=== PATIENT | female | born 1985 | race Caucasian/White ===

== ENCOUNTER 2022-06-19 14:30 | Inpatient (IN) | payer OTHER ==
[2022-06-19 16:49] VITALS: BMI 20.8
[2022-06-19] MEDS ORDERED: NALOXONE HCL 0.4 MG/ML VIAL IM PRN (19:03)
[2022-06-19] MEDS ORDERED: MAG HYDROX/AL HYDROX/SIMETH 30 ML UNIT-DOSE CUP PO PRN (19:03)
[2022-06-19] MEDS ORDERED: BENZOCAINE/MENTHOL (CHLORASEPTIC ) LOZENGE MM PRN (19:03)
[2022-06-19] MEDS ORDERED: NALOXONE HCL (KLOXXADO) 8 MG SPRAY NS PRN (19:03)
[2022-06-19] MEDS ORDERED: AMMONIUM LACTATE 12% LOTION 225 GM BOTTLE TP PRN (19:03)
[2022-06-19] MEDS ORDERED: guaiFENesin 600 MG TABLET.ER (FP) PO PRN (19:03)
[2022-06-19] MEDS ORDERED: POLYETHYLENE GLYCOL (HEALTHYLAX) 3350 17 GM PACKET PO PRN (19:03)
[2022-06-19] MEDS ORDERED: MAGNESIUM HYDROX 2400MG/30ML ORAL SUSPENSION 30 ML CUP PO PRN (19:03)
[2022-06-19] MEDS ORDERED: LOPERAMIDE HCL 2 MG CAPSULE PO PRN (19:03)
[2022-06-19] MEDS ORDERED: BENZONATATE 200 MG CAPSULE PO PRN (19:03)
[2022-06-19] MEDS ORDERED: ALBUTEROL SO4 0.083% IH SOL 2.5 MG/3 ML VIAL.NEB. NEB PRN (19:05)
[2022-06-19] MEDS ORDERED: ACETAMINOPHEN 325 MG TABLET (FP) ONE (19:20)
[2022-06-19] MEDS: ACETAMINOPHEN 325 MG TABLET (FP) PO PRN (19:23)
[2022-06-19] MEDS ORDERED: TUBERCULIN PPD 5 TU/0.1ML VIAL ID ONE (20:48)
[2022-06-19] MEDS: THIAMINE HCL 100 MG TABLET (FP) PO SCH (21:54)
[2022-06-19] MEDS: MELATONIN 5 MG TABLETS PO SCH (21:55)
[2022-06-20] MEDS: IBUPROFEN 400 MG TABLET (FP) PO PRN (03:14)
[2022-06-20] MEDS: hydrOXYzine PAMOATE 25 MG CAPSULE (FP) PO PRN ×2 (03:14→10:36)
[2022-06-20] MEDS: PRENATAL VITAMINS W/ FOLIC ACID TABLET (FP) PO SCH (10:35)
[2022-06-20] MEDS: IBUPROFEN 600 MG TABLET (FP) PO PRN (10:37)
[2022-06-20] MEDS: NICOTINE 10 MG CARTRIDGE (INHALER) IH PRN (10:38)
[2022-06-20 11:30] LABS: HEMATOCRIT 34.7 % (32.4-45.2); HEMOGLOBIN 11.7 GM/dL (10.7-15.3); MCH 33.1 pg (25.7-33.7); MCHC 33.8 g/dl (32.0-36.0); MEAN CELL VOLUME 97.9 fl (80-96); MEAN PLT VOLUME 8.8 fl (7.5-11.1); PLATELET COUNT 360 10^3/uL (134-434); RBC 3.54 M/mm3 (3.60-5.2); RDW 14.3 % (11.6-15.6); WHITE BLOOD COUNT 8.5 K/mm3 (4.0-10.0)
[2022-06-20 11:54] LABS: POTASSIUM 4.3 mmol/L (3.5-5.1)
[2022-06-20 12:18] LABS: CALCIUM 9.1 mg/dL (8.5-10.1)
[2022-06-20 12:19] LABS: ALBUMIN 3.8 g/dl (3.4-5.0); BLOOD UREA NITROGEN 11.5 mg/dL (7-18)
[2022-06-20 12:22] LABS: CREATININE 0.8 mg/dL (0.55-1.3)
[2022-06-20 12:23] LABS: BILIRUBIN,TOTAL 0.8 mg/dL (0.2-1)
[2022-06-20 12:24] LABS: TOT PROT 7.4 g/dl (6.4-8.2)
[2022-06-20 12:32] LABS: SYPHILIS W/ RPR CONF NON-REACTIVE (NONREACTIVE)
[2022-06-20] MEDS ORDERED: METHOCARBAMOL 500 MG TABLET PO SCH (14:00)
[2022-06-20] MEDS: MELATONIN 5 MG TABLETS PO SCH (21:28)
[2022-06-20] MEDS: THIAMINE HCL 100 MG TABLET (FP) PO SCH (21:28)
[2022-06-20] MEDS: traZODone HCL 50 MG TABLET (FP) PO SCH (21:29)
[2022-06-21] MEDS: PRENATAL VITAMINS W/ FOLIC ACID TABLET (FP) PO SCH (09:48)
[2022-06-21] MEDS: NICOTINE 10 MG CARTRIDGE (INHALER) IH PRN (15:45)
[2022-06-21 20:00] LABS: URINE APPEARANCE CLEAR; URINE BILIRUBIN NEGATIVE (NEGATIVE); URINE COLOR YELLOW; URINE GLUCOSE (UA) NEGATIVE (NEGATIVE); URINE KETONE TRACE (NEGATIVE); URINE LEUK ESTERASE NEGATIVE (NEGATIVE); URINE NITRITE NEGATIVE (NEGATIVE); URINE PROTEIN NEGATIVE (NEGATIVE)
[2022-06-21] MEDS: traZODone HCL 50 MG TABLET (FP) PO SCH (21:35)
[2022-06-21] MEDS: MELATONIN 5 MG TABLETS PO SCH (21:35)
[2022-06-21] MEDS: THIAMINE HCL 100 MG TABLET (FP) PO SCH (21:35)
[2022-06-22] MEDS: PRENATAL VITAMINS W/ FOLIC ACID TABLET (FP) PO SCH (09:33)
[2022-06-22] MEDS: MELATONIN 5 MG TABLETS PO SCH (21:25)
[2022-06-22] MEDS: THIAMINE HCL 100 MG TABLET (FP) PO SCH (21:25)
[2022-06-22] MEDS: NICOTINE 10 MG CARTRIDGE (INHALER) IH PRN (21:25)
[2022-06-22] MEDS: traZODone HCL 50 MG TABLET (FP) PO SCH (21:25)
[2022-06-22] MEDS: METHOCARBAMOL 500 MG TABLET PO PRN (21:26)
[2022-06-23] MEDS: METHOCARBAMOL 500 MG TABLET PO PRN ×2 (10:00→21:34)
[2022-06-23] MEDS: FLUTICASONE/SALMETEROL 100 MCG/50 MCG DISKUS IH SCH ×2 (10:31→21:32)
[2022-06-23] MEDS: FLUTICASONE PROP 0.05% 16 GM NASAL SPRAY NS SCH ×2 (10:32→21:33)
[2022-06-23] MEDS: PRENATAL VITAMINS W/ FOLIC ACID TABLET (FP) PO SCH (10:37)
[2022-06-23] MEDS ORDERED: ALBUTEROL SO4 2 MG TABLET PO SCH (14:00)
[2022-06-23] MEDS ORDERED: ALBUTEROL SO4 0.083% IH SOL 2.5 MG/3 ML VIAL.NEB. NEB PRN (15:10)
[2022-06-23] MEDS: NICOTINE 10 MG CARTRIDGE (INHALER) IH PRN (21:32)
[2022-06-23] MEDS: traZODone HCL 50 MG TABLET (FP) PO SCH (21:33)
[2022-06-23] MEDS: MELATONIN 5 MG TABLETS PO SCH (21:33)
[2022-06-23] MEDS: THIAMINE HCL 100 MG TABLET (FP) PO SCH (21:33)
[2022-06-24] MEDS: METHOCARBAMOL 500 MG TABLET PO PRN ×3 (06:31→21:19)
[2022-06-24] MEDS: FLUTICASONE PROP 0.05% 16 GM NASAL SPRAY NS SCH ×2 (09:34→21:21)
[2022-06-24] MEDS: FLUTICASONE/SALMETEROL 100 MCG/50 MCG DISKUS IH SCH ×2 (09:34→21:21)
[2022-06-24] MEDS: PRENATAL VITAMINS W/ FOLIC ACID TABLET (FP) PO SCH (09:35)
[2022-06-24] MEDS: IBUPROFEN 600 MG TABLET (FP) PO PRN (09:35)
[2022-06-24] MEDS: IBUPROFEN 400 MG TABLET (FP) PO PRN ×2 (14:19→19:40)
[2022-06-24] MEDS: hydrOXYzine PAMOATE 25 MG CAPSULE (FP) PO PRN (14:19)
[2022-06-24] MEDS: MELATONIN 5 MG TABLETS PO SCH (21:19)
[2022-06-24] MEDS: THIAMINE HCL 100 MG TABLET (FP) PO SCH (21:19)
[2022-06-24] MEDS: traZODone HCL 50 MG TABLET (FP) PO SCH (21:19)
[2022-06-24] MEDS: NICOTINE 10 MG CARTRIDGE (INHALER) IH PRN (21:20)
[2022-06-24] MEDS: COLLOIDAL OATMEAL 1 BAR EACH TP PRN (23:35)
[2022-06-25] MEDS: ACETAMINOPHEN 325 MG TABLET (FP) PO PRN ×2 (06:57→17:33)
[2022-06-25] MEDS: FLUTICASONE/SALMETEROL 100 MCG/50 MCG DISKUS IH SCH ×2 (10:23→21:40)
[2022-06-25] MEDS: FLUTICASONE PROP 0.05% 16 GM NASAL SPRAY NS SCH ×2 (10:23→21:42)
[2022-06-25] MEDS: PRENATAL VITAMINS W/ FOLIC ACID TABLET (FP) PO SCH (10:24)
[2022-06-25] MEDS: METHOCARBAMOL 500 MG TABLET PO PRN ×2 (10:24→21:42)
[2022-06-25] MEDS: NICOTINE 10 MG CARTRIDGE (INHALER) IH PRN (15:34)
[2022-06-25] MEDS: hydrOXYzine PAMOATE 25 MG CAPSULE (FP) PO PRN ×2 (15:34→21:40)
[2022-06-25] MEDS: THIAMINE HCL 100 MG TABLET (FP) PO SCH (21:40)
[2022-06-25] MEDS: traZODone HCL 50 MG TABLET (FP) PO SCH (21:40)
[2022-06-25] MEDS: MELATONIN 5 MG TABLETS PO SCH (21:42)
[2022-06-26] MEDS: ACETAMINOPHEN 325 MG TABLET (FP) PO PRN (07:27)
[2022-06-26] MEDS: METHOCARBAMOL 500 MG TABLET PO PRN ×2 (07:29→21:30)
[2022-06-26] MEDS: FLUTICASONE/SALMETEROL 100 MCG/50 MCG DISKUS IH SCH ×2 (10:06→21:28)
[2022-06-26] MEDS: PRENATAL VITAMINS W/ FOLIC ACID TABLET (FP) PO SCH (10:06)
[2022-06-26] MEDS: FLUTICASONE PROP 0.05% 16 GM NASAL SPRAY NS SCH ×2 (10:06→21:29)
[2022-06-26] MEDS: NICOTINE 10 MG CARTRIDGE (INHALER) IH PRN ×2 (13:04→21:29)
[2022-06-26] MEDS: traZODone HCL 50 MG TABLET (FP) PO SCH (21:28)
[2022-06-26] MEDS: MELATONIN 5 MG TABLETS PO SCH (21:28)
[2022-06-26] MEDS: THIAMINE HCL 100 MG TABLET (FP) PO SCH (21:58)
[2022-06-27] MEDS: METHOCARBAMOL 500 MG TABLET PO PRN ×2 (06:02→21:17)
[2022-06-27] MEDS: hydrOXYzine PAMOATE 25 MG CAPSULE (FP) PO PRN ×2 (06:02→11:41)
[2022-06-27] MEDS: traZODone HCL 50 MG TABLET (FP) PO SCH (09:15)
[2022-06-27] MEDS: FLUTICASONE PROP 0.05% 16 GM NASAL SPRAY NS SCH ×2 (10:03→21:17)
[2022-06-27] MEDS: NICOTINE 10 MG CARTRIDGE (INHALER) IH PRN ×2 (10:03→21:19)
[2022-06-27] MEDS: PRENATAL VITAMINS W/ FOLIC ACID TABLET (FP) PO SCH (10:04)
[2022-06-27] MEDS: FLUTICASONE/SALMETEROL 100 MCG/50 MCG DISKUS IH SCH ×2 (10:05→21:17)
[2022-06-27 13:41] LABS: INR 0.89 (0.83-1.09); PROTHROMBIN TIME (PATIENT) 10.3 SEC (9.7-13.0)
[2022-06-27] MEDS: THIAMINE HCL 100 MG TABLET (FP) PO SCH (21:17)
[2022-06-27] MEDS: MELATONIN 5 MG TABLETS PO SCH (21:17)
[2022-06-28] MEDS: ACETAMINOPHEN 325 MG TABLET (FP) PO PRN (06:09)
[2022-06-28] MEDS: METHOCARBAMOL 500 MG TABLET PO PRN ×2 (06:10→21:12)
[2022-06-28] MEDS: hydrOXYzine PAMOATE 25 MG CAPSULE (FP) PO PRN ×2 (06:10→21:12)
[2022-06-28] MEDS: FLUTICASONE/SALMETEROL 100 MCG/50 MCG DISKUS IH SCH ×2 (10:03→21:12)
[2022-06-28] MEDS: PRENATAL VITAMINS W/ FOLIC ACID TABLET (FP) PO SCH (10:03)
[2022-06-28] MEDS: FLUTICASONE PROP 0.05% 16 GM NASAL SPRAY NS SCH ×2 (10:04→21:12)
[2022-06-28] MEDS: NICOTINE 10 MG CARTRIDGE (INHALER) IH PRN ×2 (11:14→18:41)
[2022-06-28] MEDS: traZODone HCL 50 MG TABLET (FP) PO SCH (21:12)
[2022-06-28] MEDS: THIAMINE HCL 100 MG TABLET (FP) PO SCH (21:12)
[2022-06-28] MEDS: MELATONIN 5 MG TABLETS PO SCH (21:12)
[2022-06-29] MEDS: IBUPROFEN 600 MG TABLET (FP) PO PRN (06:12)
[2022-06-29] MEDS: METHOCARBAMOL 500 MG TABLET PO PRN ×2 (06:13→21:34)
[2022-06-29] MEDS: hydrOXYzine PAMOATE 25 MG CAPSULE (FP) PO PRN ×2 (06:14→21:34)
[2022-06-29] MEDS: NICOTINE 10 MG CARTRIDGE (INHALER) IH PRN ×3 (06:15→19:04)
[2022-06-29] MEDS: PRENATAL VITAMINS W/ FOLIC ACID TABLET (FP) PO SCH (10:28)
[2022-06-29] MEDS: FLUTICASONE/SALMETEROL 100 MCG/50 MCG DISKUS IH SCH ×2 (10:28→21:38)
[2022-06-29] MEDS: FLUTICASONE PROP 0.05% 16 GM NASAL SPRAY NS SCH ×2 (10:29→21:38)
[2022-06-29] MEDS: traZODone HCL 50 MG TABLET (FP) PO SCH (21:34)
[2022-06-29] MEDS: THIAMINE HCL 100 MG TABLET (FP) PO SCH (21:34)
[2022-06-29] MEDS: MELATONIN 5 MG TABLETS PO SCH (21:38)
[2022-06-30] MEDS: hydrOXYzine PAMOATE 25 MG CAPSULE (FP) PO PRN (05:55)
[2022-06-30] MEDS: METHOCARBAMOL 500 MG TABLET PO PRN ×2 (05:56→21:21)
[2022-06-30] MEDS: NICOTINE 10 MG CARTRIDGE (INHALER) IH PRN ×3 (05:57→18:54)
[2022-06-30] MEDS: PRENATAL VITAMINS W/ FOLIC ACID TABLET (FP) PO SCH (10:14)
[2022-06-30] MEDS: FLUTICASONE PROP 0.05% 16 GM NASAL SPRAY NS SCH ×2 (10:14→21:22)
[2022-06-30] MEDS: FLUTICASONE/SALMETEROL 100 MCG/50 MCG DISKUS IH SCH ×2 (10:15→21:21)
[2022-06-30] MEDS: MELATONIN 5 MG TABLETS PO SCH (21:21)
[2022-06-30] MEDS: THIAMINE HCL 100 MG TABLET (FP) PO SCH (21:21)
[2022-06-30] MEDS: traZODone HCL 50 MG TABLET (FP) PO SCH (21:22)
[2022-07-01] MEDS: hydrOXYzine PAMOATE 25 MG CAPSULE (FP) PO PRN (06:26)
[2022-07-01] MEDS: METHOCARBAMOL 500 MG TABLET PO PRN ×2 (06:26→21:20)
[2022-07-01] MEDS: IBUPROFEN 600 MG TABLET (FP) PO PRN (06:26)
[2022-07-01] MEDS: NICOTINE 10 MG CARTRIDGE (INHALER) IH PRN ×3 (06:27→21:19)
[2022-07-01] MEDS: FLUTICASONE PROP 0.05% 16 GM NASAL SPRAY NS SCH ×2 (09:39→21:23)
[2022-07-01] MEDS: PRENATAL VITAMINS W/ FOLIC ACID TABLET (FP) PO SCH (09:39)
[2022-07-01] MEDS: FLUTICASONE/SALMETEROL 100 MCG/50 MCG DISKUS IH SCH ×2 (09:39→21:20)
[2022-07-01] MEDS: traZODone HCL 50 MG TABLET (FP) PO SCH (21:20)
[2022-07-01] MEDS: THIAMINE HCL 100 MG TABLET (FP) PO SCH (21:20)
[2022-07-01] MEDS: SUVOREXANT 10 MG TABLET PO PRN (21:22)
[2022-07-02] MEDS: METHOCARBAMOL 500 MG TABLET PO PRN ×2 (06:22→21:25)
[2022-07-02] MEDS: hydrOXYzine PAMOATE 25 MG CAPSULE (FP) PO PRN ×3 (06:22→21:25)
[2022-07-02] MEDS: NICOTINE 10 MG CARTRIDGE (INHALER) IH PRN ×3 (06:22→19:03)
[2022-07-02] MEDS: PRENATAL VITAMINS W/ FOLIC ACID TABLET (FP) PO SCH (09:53)
[2022-07-02] MEDS: FLUTICASONE/SALMETEROL 100 MCG/50 MCG DISKUS IH SCH ×2 (09:53→21:40)
[2022-07-02] MEDS: FLUTICASONE PROP 0.05% 16 GM NASAL SPRAY NS SCH ×2 (09:53→21:25)
[2022-07-02] MEDS: IBUPROFEN 600 MG TABLET (FP) PO PRN (19:04)
[2022-07-02] MEDS: traZODone HCL 50 MG TABLET (FP) PO SCH (21:24)
[2022-07-02] MEDS: THIAMINE HCL 100 MG TABLET (FP) PO SCH (21:24)
[2022-07-03] MEDS: hydrOXYzine PAMOATE 25 MG CAPSULE (FP) PO PRN ×2 (06:33→20:13)
[2022-07-03] MEDS: METHOCARBAMOL 500 MG TABLET PO PRN (06:33)
[2022-07-03] MEDS: NICOTINE 10 MG CARTRIDGE (INHALER) IH PRN ×3 (06:34→16:50)
[2022-07-03] MEDS: traZODone HCL 50 MG TABLET (FP) PO SCH (09:20)
[2022-07-03] MEDS: PRENATAL VITAMINS W/ FOLIC ACID TABLET (FP) PO SCH (10:13)
[2022-07-03] MEDS: FLUTICASONE PROP 0.05% 16 GM NASAL SPRAY NS SCH ×2 (10:13→21:22)
[2022-07-03] MEDS: FLUTICASONE/SALMETEROL 100 MCG/50 MCG DISKUS IH SCH ×2 (10:13→21:22)
[2022-07-03] MEDS: COLLOIDAL OATMEAL 1 BAR EACH TP PRN (12:35)
[2022-07-03] MEDS: IBUPROFEN 600 MG TABLET (FP) PO PRN (20:13)
[2022-07-03] MEDS: THIAMINE HCL 100 MG TABLET (FP) PO SCH (21:19)
[2022-07-04] MEDS: hydrOXYzine PAMOATE 25 MG CAPSULE (FP) PO PRN (06:08)
[2022-07-04] MEDS: IBUPROFEN 400 MG TABLET (FP) PO PRN (06:08)
[2022-07-04] MEDS: NICOTINE 10 MG CARTRIDGE (INHALER) IH PRN ×3 (06:09→21:35)
[2022-07-04] MEDS: METHOCARBAMOL 500 MG TABLET PO PRN ×2 (06:09→21:34)
[2022-07-04] MEDS: PRENATAL VITAMINS W/ FOLIC ACID TABLET (FP) PO SCH (09:54)
[2022-07-04] MEDS: IBUPROFEN 600 MG TABLET (FP) PO PRN ×2 (09:54→21:34)
[2022-07-04] MEDS: FLUTICASONE PROP 0.05% 16 GM NASAL SPRAY NS SCH ×2 (09:56→21:41)
[2022-07-04] MEDS: FLUTICASONE/SALMETEROL 100 MCG/50 MCG DISKUS IH SCH ×2 (09:56→21:41)
[2022-07-04] MEDS: LIDOCAINE 5% TOPICAL PATCH TP SCH (16:09)
[2022-07-04] MEDS: traZODone HCL 50 MG TABLET (FP) PO SCH (21:33)
[2022-07-04] MEDS: SUVOREXANT 10 MG TABLET PO PRN (21:34)
[2022-07-04] MEDS: THIAMINE HCL 100 MG TABLET (FP) PO SCH (21:34)
[2022-07-04] MEDS: LIDOCAINE PATCH REMOVAL MC SCH (21:42)
[2022-07-05] MEDS: METHOCARBAMOL 500 MG TABLET PO PRN ×3 (06:04→21:35)
[2022-07-05] MEDS: IBUPROFEN 400 MG TABLET (FP) PO PRN ×2 (06:04→14:13)
[2022-07-05] MEDS: hydrOXYzine PAMOATE 25 MG CAPSULE (FP) PO PRN (06:04)
[2022-07-05] MEDS: NICOTINE 10 MG CARTRIDGE (INHALER) IH PRN ×2 (06:05→17:38)
[2022-07-05] MEDS: FLUTICASONE PROP 0.05% 16 GM NASAL SPRAY NS SCH ×2 (10:06→21:34)
[2022-07-05] MEDS: FLUTICASONE/SALMETEROL 100 MCG/50 MCG DISKUS IH SCH ×2 (10:06→21:34)
[2022-07-05] MEDS: LIDOCAINE 5% TOPICAL PATCH TP SCH (10:06)
[2022-07-05] MEDS: PRENATAL VITAMINS W/ FOLIC ACID TABLET (FP) PO SCH (10:06)
[2022-07-05] MEDS: THIAMINE HCL 100 MG TABLET (FP) PO SCH (21:34)
[2022-07-05] MEDS: traZODone HCL 50 MG TABLET (FP) PO SCH (21:35)
[2022-07-05] MEDS: SUVOREXANT 10 MG TABLET PO PRN (21:40)
[2022-07-06] MEDS: LIDOCAINE PATCH REMOVAL MC SCH ×2 (00:05→21:51)
[2022-07-06] MEDS: IBUPROFEN 400 MG TABLET (FP) PO PRN (06:24)
[2022-07-06] MEDS: METHOCARBAMOL 500 MG TABLET PO PRN ×2 (06:24→21:09)
[2022-07-06] MEDS: hydrOXYzine PAMOATE 25 MG CAPSULE (FP) PO PRN ×2 (06:24→12:21)
[2022-07-06] MEDS: NICOTINE 10 MG CARTRIDGE (INHALER) IH PRN ×3 (06:25→19:36)
[2022-07-06] MEDS: traZODone HCL 50 MG TABLET (FP) PO SCH (09:05)
[2022-07-06] MEDS: FLUTICASONE PROP 0.05% 16 GM NASAL SPRAY NS SCH ×2 (10:37→21:09)
[2022-07-06] MEDS: FLUTICASONE/SALMETEROL 100 MCG/50 MCG DISKUS IH SCH ×2 (10:38→21:09)
[2022-07-06] MEDS: LIDOCAINE 5% TOPICAL PATCH TP SCH (10:38)
[2022-07-06] MEDS: PRENATAL VITAMINS W/ FOLIC ACID TABLET (FP) PO SCH (10:38)
[2022-07-06] MEDS: THIAMINE HCL 100 MG TABLET (FP) PO SCH (21:09)
[2022-07-06] MEDS: IBUPROFEN 600 MG TABLET (FP) PO PRN (21:11)
[2022-07-07] MEDS: METHOCARBAMOL 500 MG TABLET PO PRN ×3 (06:19→21:27)
[2022-07-07] MEDS: IBUPROFEN 600 MG TABLET (FP) PO PRN ×2 (06:20→14:06)
[2022-07-07] MEDS: hydrOXYzine PAMOATE 25 MG CAPSULE (FP) PO PRN ×2 (06:20→21:26)
[2022-07-07 08:01] VITALS: RESP 18
[2022-07-07] MEDS: FLUTICASONE PROP 0.05% 16 GM NASAL SPRAY NS SCH ×2 (10:12→21:26)
[2022-07-07] MEDS: PRENATAL VITAMINS W/ FOLIC ACID TABLET (FP) PO SCH (10:12)
[2022-07-07] MEDS: FLUTICASONE/SALMETEROL 100 MCG/50 MCG DISKUS IH SCH ×2 (10:12→21:26)
[2022-07-07] MEDS: NICOTINE 10 MG CARTRIDGE (INHALER) IH PRN ×3 (10:16→21:43)
[2022-07-07] MEDS: LIDOCAINE 5% TOPICAL PATCH TP SCH (10:30)
[2022-07-07] MEDS: SUVOREXANT 10 MG TABLET PO PRN (21:25)
[2022-07-07] MEDS: THIAMINE HCL 100 MG TABLET (FP) PO SCH (21:27)
[2022-07-07] MEDS: traZODone HCL 50 MG TABLET (FP) PO SCH (21:27)
[2022-07-07] MEDS: LIDOCAINE PATCH REMOVAL MC SCH (21:28)
[2022-07-08] MEDS: IBUPROFEN 600 MG TABLET (FP) PO PRN ×2 (06:16→19:17)
[2022-07-08] MEDS: ACETAMINOPHEN 325 MG TABLET (FP) PO PRN (06:17)
[2022-07-08] MEDS: METHOCARBAMOL 500 MG TABLET PO PRN ×2 (06:18→21:33)
[2022-07-08] MEDS: hydrOXYzine PAMOATE 25 MG CAPSULE (FP) PO PRN (06:18)
[2022-07-08] MEDS: PRENATAL VITAMINS W/ FOLIC ACID TABLET (FP) PO SCH (09:47)
[2022-07-08] MEDS: FLUTICASONE/SALMETEROL 100 MCG/50 MCG DISKUS IH SCH ×2 (09:47→21:33)
[2022-07-08] MEDS: LIDOCAINE 5% TOPICAL PATCH TP SCH (09:48)
[2022-07-08] MEDS: FLUTICASONE PROP 0.05% 16 GM NASAL SPRAY NS SCH ×2 (09:48→21:33)
[2022-07-08] MEDS: NICOTINE 10 MG CARTRIDGE (INHALER) IH PRN ×2 (11:51→19:16)
[2022-07-08] MEDS: SUVOREXANT 10 MG TABLET PO PRN (21:32)
[2022-07-08] MEDS: traZODone HCL 50 MG TABLET (FP) PO SCH (21:33)
[2022-07-08] MEDS: THIAMINE HCL 100 MG TABLET (FP) PO SCH (21:33)
[2022-07-08] MEDS: LIDOCAINE PATCH REMOVAL MC SCH (23:48)
[2022-07-09] MEDS: hydrOXYzine PAMOATE 25 MG CAPSULE (FP) PO PRN (06:09)
[2022-07-09] MEDS: IBUPROFEN 600 MG TABLET (FP) PO PRN (06:09)
[2022-07-09] MEDS: METHOCARBAMOL 500 MG TABLET PO PRN ×2 (06:09→21:37)
[2022-07-09] MEDS: NICOTINE 10 MG CARTRIDGE (INHALER) IH PRN ×2 (06:10→15:47)
[2022-07-09] MEDS: FLUTICASONE PROP 0.05% 16 GM NASAL SPRAY NS SCH ×2 (09:42→21:40)
[2022-07-09] MEDS: PRENATAL VITAMINS W/ FOLIC ACID TABLET (FP) PO SCH (09:42)
[2022-07-09] MEDS: FLUTICASONE/SALMETEROL 100 MCG/50 MCG DISKUS IH SCH ×2 (09:42→21:40)
[2022-07-09] MEDS: LIDOCAINE 5% TOPICAL PATCH TP SCH (09:42)
[2022-07-09] MEDS: traZODone HCL 50 MG TABLET (FP) PO SCH (21:37)
[2022-07-09] MEDS: THIAMINE HCL 100 MG TABLET (FP) PO SCH (21:37)
[2022-07-09] MEDS: SUVOREXANT 10 MG TABLET PO PRN (21:39)
[2022-07-09] MEDS: LIDOCAINE PATCH REMOVAL MC SCH (21:40)
[2022-07-10] MEDS: METHOCARBAMOL 500 MG TABLET PO PRN (06:14)
[2022-07-10] MEDS: hydrOXYzine PAMOATE 25 MG CAPSULE (FP) PO PRN (06:14)
[2022-07-10] MEDS: IBUPROFEN 400 MG TABLET (FP) PO PRN (06:14)
[2022-07-10] MEDS: NICOTINE 10 MG CARTRIDGE (INHALER) IH PRN (06:15)
[2022-07-10 07:58] VITALS: BP 105/61; PULSE 84; TEMP 97.4
[2022-07-10] MEDS: PRENATAL VITAMINS W/ FOLIC ACID TABLET (FP) PO SCH (09:07)
[2022-07-10] MEDS: FLUTICASONE/SALMETEROL 100 MCG/50 MCG DISKUS IH SCH (09:11)
[2022-07-10] MEDS: LIDOCAINE 5% TOPICAL PATCH TP SCH (09:11)
[2022-07-10] MEDS: FLUTICASONE PROP 0.05% 16 GM NASAL SPRAY NS SCH (09:11)
== END 2022-07-10 09:30 | disposition home or self-care (01) | DRG 772 ==
LOC: YASAS 14:30 → Y5N 18:48
PROVIDERS: ADMIT Allergy & Immunology; ATTEND Psychiatry & Neurology Pain Medicine
PROC: HZ42ZZZ Group Counseling for Substance Abuse Treatment, Cognitive-Behavioral (ICD-10-PCS; principal; 2022-06-19)
DX: F10.20 Alcohol dependence, uncomplicated (principal); F41.9 Anxiety disorder, unspecified; F32.A Depression, unspecified; J45.909 Unspecified asthma, uncomplicated; R60.0 Localized edema; Z87.891 Personal history of nicotine dependence
CPT/HCPCS: 36415; 80053; 81003; 82607; 82746; 84443; 85027; 85610; 86780; 86803